=== PATIENT | male | born 1960 | race Caucasian/White ===

== ENCOUNTER 2018-12-29 11:45 | Emergency (ER) | payer MEDICAID ==
[~2018-12-29] VITALS: Ht 167.6 cm; Wt 71.7 kg
[2018-12-29 11:51] VITALS: BP 138/76; Ht 167.6 cm; Wt 71.7 kg
== END 2018-12-29 13:08 | disposition home or self-care (01) ==
LOC: ED 11:45
DX: H16.002 Unspecified corneal ulcer, left eye (principal)